=== PATIENT | male | born 2000 | race Caucasian/White ===

== ENCOUNTER 2020-01-22 15:44 | Emergency (ER) | payer OTHER ==
[2020-01-22 15:53] VITALS: BP 147/64
--- NOTE | 2020-01-22 15:55 | ER Document Report ---
HPI - HPI Time Seen by Provider: 01/22/20 15:52 Notes: Otherwise healthy 19-year-old male presents the emergency department chief complaint of left thumb laceration. Patient reports this occurred 3 days ago with a razor blade. His immunizations are up-to-date. He did not seek care for his laceration. - ROS Systems Reviewed and Negative: Yes All other systems reviewed and negative - DERM Skin Problems: Laceration Past Medical History - General Information source: Patient - Social History Smoking Status: Never Smoker Frequency of alcohol use: None Drug Abuse: None Family History: None - Medical History Medical History: Negative Surgical Hx: Negative - Immunizations Immunizations up to date: Yes Vertical Provider Document - CONSTITUTIONAL Notes: PHYSICAL EXAMINATION: GENERAL: Well-appearing, well-nourished and in no acute distress. HEAD: Atraumatic, normocephalic. EYES: Pupils equal round extraocular movements intact, conjunctiva are normal. ENT: Nares patent NECK: Normal range of motion LUNGS: No respiratory distress Musculoskeletal: Normal range of motion to right thumb. Normal flexion, normal extension. NEUROLOGICAL: Normal speech, normal gait. PSYCH: Normal mood, normal affect. SKIN: 2 cm laceration to left thumb near the medial distal surface. Cap refill less than 3 seconds. No active bleeding noted. Course - Re-evaluation Re-evalutation: Normal flexion, normal extension, cap refill less than 3 seconds. Steri-Strip applied. Patient will be started on a 5-day course of cephalexin for infection prevention. Tetanus up-to-date as patient is an [employer] duty [employer]. Procedures - Laceration/Wound Repair Left Thumb Wound length (cm): 2 Wound's Depth, Shape: Superficial Wound explored: Clean Wound Repaired With: Steri-strips - x2 Post-procedure wound care: Sterile dressing applied Post-procedure NV exam normal: Yes Complications: No Discharge - Discharge Clinical Impression: Laceration Condition: Stable Disposition: HOME, SELF-CARE Additional Instructions: Keep clean and dry, take antibiotics as prescribed. The sensation should return in the next 2-4 weeks. Please return earlier if you develop any signs of infection such as increased redness, swelling, foul-smelling drainage or fever. Prescriptions: Cephalexin [Keflex] 500 mg PO BID #10 capsule
== END 2020-01-22 16:20 | disposition home or self-care (01) ==
LOC: ER 15:44
PROC: 0HQGXZZ Repair Left Hand Skin, External Approach (ICD-10-PCS; principal; 2020-01-22)
DX: S61.012A Laceration without foreign body of left thumb without damage to nail, initial encounter (principal); W45.8XXA Other foreign body or object entering through skin, initial encounter
CPT/HCPCS: 99283